=== PATIENT | male | born 1965 | race Caucasian/White ===

== ENCOUNTER 2017-08-28 05:44 | Day surgery (SDC) | payer OTHER ==
[2017-08-28 07:31] VITALS: BMI 37.9
--- NOTE | 2017-08-28 07:41 | HP ---
Admitting History and Physical - Admission History of Present Illness: Patient is a 52 y/o male with a past medical history of CAD, CKD stage IV, bipolar disorder, DM, and sleep apnea (cpap at night). Patient presents for ect , this will be his 12th ect session. Patient was recently discharged from [facility] last week in which he received ect. He denies any suicidal or homicidal ideation, visual or auditory hallucinations. History Source: Patient Limitations to Obtaining History: No Limitations - Past Medical History Cardiovascular: Yes: CAD Pulmonary: Yes: Sleep Apnea Endocrine: Yes: Diabetes Mellitus - Past Surgical History Additional Past Surgical History: stent x 2 - Smoking History Smoking history: Never smoked Have you smoked in the past 12 months: No - Alcohol/Substance Use Hx Alcohol Use: No History of Substance Use: reports: None - Social History Usual Living Arrangement: Yes: Other (with family) ADL: Independent Occupation: disabled History of Recent Travel: No Home Medications - Allergies Allergies/Adverse Reactions: Allergies Allergy/AdvReac Type Severity Reaction Status Date / Time haloperidol [From Haldol] Allergy Severe Rash Verified 08/26/17 15:00 thiothixene [From Navane] Allergy Severe "FREAK OUT" Verified 08/26/17 15:00 ziprasidone [From Geodon] Allergy Severe "FREAK OUT" Verified 08/26/17 15:00 - Home Medications Home Medications: Ambulatory Orders Aripiprazole [Abilify] 5 mg PO DAILY 08/28/17 Aspirin [Adult Aspirin] 81 mg PO DAILY 08/28/17 Clonazepam [Klonopin] 1 mg PO DAILY 08/28/17 Divalproex [Depakote -] 500 mg PO DAILY 08/28/17 Linagliptin [Tradjenta] 5 mg PO DAILY 08/28/17 Pantoprazole Sodium [Protonix] 40 mg PO DAILY 08/28/17 Ticagrelor [Brilinta] 60 mg PO DAILY 08/28/17 Family Disease History - Family Disease History Family History: Denies Review of Systems - Review of Systems Constitutional: reports: No Symptoms Eyes: reports: No Symptoms HENT: reports: No Symptoms Neck: reports: No Symptoms Cardiovascular: reports: No Symptoms Respiratory: reports: No Symptoms Gastrointestinal: reports: No Symptoms Genitourinary: reports: No Symptoms Musculoskeletal: reports: No Symptoms Integumentary: reports: No Symptoms Neurological: reports: No Symptoms Endocrine: reports: No Symptoms Hematology/Lymphatic: reports: No Symptoms Psychiatric: reports: Anxiety Physical Examination Constitutional: Yes: Well Nourished, No Distress, Calm, Obese Eyes: Yes: WNL, Conjunctiva Clear, EOM Intact HENT: Yes: WNL, Atraumatic, Normocephalic Neck: Yes: WNL, Supple, Trachea Midline Cardiovascular: Yes: WNL, Regular Rate and Rhythm, S1, S2 Respiratory: Yes: WNL, Regular, CTA Bilaterally Gastrointestinal: Yes: WNL, Normal Bowel Sounds, Soft ...Rectal Exam: Yes: Deferred Renal/: Yes: WNL Musculoskeletal: Yes: WNL Extremities: Yes: WNL Edema: No Peripheral Pulses WNL: Yes Peripheral Pulses: Left Radial: 4+, Right Radial: 4+, Left Doralis Pedis: 3+, Right Dorsalis Pedis: 3+, Left Femoral: 3+, Right Femoral: 3+ Integumentary: Yes: WNL Neurological: Yes: WNL, Alert, Oriented ...Motor Strength: WNL Psychiatric: Yes: WNL, Alert, Oriented Labs: cbc 07/24/17 normocytic anemia bmp creatine 2.7 hx of ckd stage IV Imaging - Results EKG: Image Reviewed, Other ( nsr) Assessment/Plan patient is a 52 y/o male that presents for ect lab and ekg reviewed patient appears euvolemic on exam no signs of fluid overload noted patient has a known history of ckd, calculated gfr on 07/24/17 labs is 32, k 5.1, BMP ordered patient is medically optimized for procedure pending repeat bmp
[2017-08-28] MEDS ORDERED: KETAMINE HCL 500 MG/10 ML VIAL ONE (08:49)
[2017-08-28 09:47] LABS: ANION GAP 7 (8-16); BLOOD UREA NITROGEN 36 mg/dl (7-18); CALCIUM 9.2 mg/dl (8.4-10.2); CHLORIDE 108 mmol/L (98-107); CO2 24 mmol/L (22-28); CREATININE 2.7 mg/dl (0.6-1.3); GLUCOSE,RANDOM 114 mg/dl (74-106); POTASSIUM 4.1 mmol/L (3.5-5.1); SODIUM 139 mmol/L (136-145)
[2017-08-28 10:13] VITALS: TEMP 97.6
[2017-08-28 11:53] VITALS: BP 132/78; PULSE 82
== END 2017-08-28 11:57 | disposition home or self-care (01) ==
LOC: FECT 05:44
PROVIDERS: ATTEND Psychiatry & Neurology Psychiatry
PROC: GZB4ZZZ Other Electroconvulsive Therapy (ICD-10-PCS; principal; 2017-08-28 07:30)
DX: F31.89 Other bipolar disorder (principal)
CPT/HCPCS: 36415; 80048; 82962; 90870; 94760

== ENCOUNTER 2017-09-08 06:00 | Day surgery (SDC) | payer OTHER | END 2017-09-08 08:00 | disposition home or self-care (01) | LOC: FECT 06:00 | PROVIDERS: ATTEND Psychiatry & Neurology Psychiatry | PROC: GZB4ZZZ Other Electroconvulsive Therapy (ICD-10-PCS; principal; 2017-09-08) | DX: F33.1 Major depressive disorder, recurrent, moderate (principal); Z53.09 Procedure and treatment not carried out because of other contraindication | CPT/HCPCS: 82962 ==

== ENCOUNTER 2017-09-11 05:38 | Day surgery (SDC) | payer OTHER ==
[2017-09-08 06:15] VITALS: TEMP 98.6
[~2017-09-11 05:38] MED LIST: ONDANSETRON 4 MG/2 ML VIAL IVPUSH PRN
[2017-09-11 06:06] VITALS: BMI 39.2
[2017-09-11] MEDS ORDERED: KETAMINE HCL 500 MG/10 ML VIAL ONE (06:59)
[2017-09-11 08:20] VITALS: BP 128/85; PULSE 81
== END 2017-09-11 09:20 | disposition home or self-care (01) ==
LOC: FECT 05:38
PROVIDERS: ATTEND Psychiatry & Neurology Psychiatry
PROC: GZB4ZZZ Other Electroconvulsive Therapy (ICD-10-PCS; principal; 2017-09-11 07:45)
DX: F33.2 Major depressive disorder, recurrent severe without psychotic features (principal)
CPT/HCPCS: 82962; 90870; 94760

== ENCOUNTER 2022-02-19 11:31 | Inpatient (IN) | payer OTHER ==
[2022-02-19] MEDS ORDERED: ASPIRIN 81 MG CHEWABLE TABLETS PO ONE ×2 (11:52→15:55)
[2022-02-19] MEDS ORDERED: ASPIRIN 81 MG CHEWABLE TABLETS ONE ×2 (11:59→16:47)
[2022-02-19 12:28] LABS: HEMATOCRIT 32.8 % (35.4-49); HEMOGLOBIN 11.1 G/dL (11.7-16.9); MCH 30.6 pg (25.7-33.7); MCHC 33.7 g/dl (32.0-35.9); MEAN CELL VOLUME 90.6 fl (80-96); MEAN PLT VOLUME 7.9 fl (7.5-11.1); PLATELET COUNT 314.8 10^3/uL (134-434); RBC 3.62 10^6/uL (4.00-5.60); RDW 16.3 % (11.9-15.9); WHITE BLOOD COUNT 7.4 10^3/uL (4.0-10.8)
[2022-02-19 12:37] LABS: INR 0.97 (0.83-1.09); PROTHROMBIN TIME (PATIENT) 11.2 SEC (9.7-13.0)
[2022-02-19 12:40] LABS: ACTIVATED PTT 24.7 SECONDS (25.2-36.5)
[2022-02-19 13:30] LABS: PLATELET ESTIMATE ADEQUATE
[2022-02-19 13:55] LABS: CALCIUM 9.3 mg/dL (8.5-10.1); MAGNESIUM 2.5 mg/dL (1.8-2.4)
[2022-02-19 13:58] LABS: ALBUMIN 3.4 g/dl (3.4-5.0); BLOOD UREA NITROGEN 57.6 mg/dL (7-18)
[2022-02-19 13:59] LABS: CREATININE 6.3 mg/dL (0.55-1.3)
[2022-02-19 14:02] LABS: BILIRUBIN,TOTAL 0.5 mg/dL (0.2-1); TOT PROT 6.5 g/dl (6.4-8.2)
[2022-02-19] MEDS ORDERED: ACETAMINOPHEN 1000 MG/100 ML BAG IVPB ONE (15:02)
[2022-02-19] MEDS ORDERED: ACETAMINOPHEN INJECTION 100 ML IVPB ONE (15:14)
[2022-02-19] MEDS ORDERED: ATORVASTATIN CA 80 MG TABLET (FP) PO ONE (15:57)
[2022-02-19] MEDS ORDERED: ATORVASTATIN CA 80 MG TABLET (FP) ONE (16:47)
[2022-02-19] MEDS ORDERED: ACETAMINOPHEN 325 MG TABLET (FP) ONE (18:34)
[2022-02-19] MEDS ORDERED: METOCLOPRAMIDE HCL 10 MG TABLET (FP) PO ONE ×2 (18:35)
[2022-02-20] MEDS ORDERED: ACETAMINOPHEN 500 MG TABLET (FP) PO ONE (00:11)
[2022-02-20 02:01] VITALS: BMI 36.7
[2022-02-20] MEDS ORDERED: PATIENT'S OWN MEDICATION (NON-FORMULARY) (Lamotrigine [Lamotrigine] 150 MG Tablet) PO SCH (07:15)
[2022-02-20] MEDS: ASPIRIN COATED 81 MG TABLET.EC PO SCH (09:54)
[2022-02-20] MEDS: amLODIPine BESYLATE 5 MG TABLET (FP) PO SCH (09:54)
[2022-02-20] MEDS: clonazePAM 0.5 MG TABLET PO SCH ×2 (09:54→21:38)
[2022-02-20] MEDS: DIVALPROEX NA *ER* EXTEND REL 500 MG TABLET.SA (FP) PO SCH ×2 (09:54→21:38)
[2022-02-20] MEDS: TICAGRELOR 90 MG TABLET PO SCH ×2 (09:58→21:38)
[2022-02-20] MEDS: OLANZapine 10 MG TABLET PO SCH (09:58)
[2022-02-20] MEDS: LAMOTRIGINE 100 MG, LAMOTRIGINE 50 MG PO SCH (09:58)
[2022-02-20] MEDS ORDERED: lamoTRIgine 100 MG TABLET PO SCH (10:00)
[2022-02-20] MEDS ORDERED: ARIPiprazole 10 MG TABLET PO SCH (10:00)
[2022-02-20] MEDS ORDERED: FUROSEMIDE 40 MG TABLET (FP) PO ONE (12:00)
[2022-02-20] MEDS: SODIUM BICARBONATE 650 MG TABLET PO SCH ×2 (12:01→21:38)
[2022-02-20] MEDS: INSULIN SLIDING SCALE (NOVOLOG) 1 VIAL SQ SCH ×3 (12:03→21:39)
[2022-02-20] MEDS: HEPARIN NA (PORCINE) 5,000 UNITS/ML 1ML VIAL SQ SCH ×2 (14:29→21:39)
[2022-02-20] MEDS ORDERED: ACETAMINOPHEN 1000 MG/100 ML BAG IVPB ONE (18:44)
[2022-02-20] MEDS: ATORVASTATIN CA 80 MG TABLET (FP) PO SCH (21:37)
[2022-02-20] MEDS ORDERED: DIVALPROEX NA *ER* EXTEND REL 500 MG TABLET.SA (FP) PO SCH (22:00)
[2022-02-20] MEDS ORDERED: ATORVASTATIN CA 20 MG TABLET (FP) PO SCH (22:00)
[2022-02-21] MEDS: HEPARIN NA (PORCINE) 5,000 UNITS/ML 1ML VIAL SQ SCH ×4 (05:39→22:08)
[2022-02-21] MEDS ORDERED: ACETAMINOPHEN 1000 MG/100 ML BAG IVPB ONE (05:45)
[2022-02-21] MEDS: INSULIN SLIDING SCALE (NOVOLOG) 1 VIAL SQ SCH ×4 (06:59→22:05)
[2022-02-21] MEDS ORDERED: REGADENOSON 0.4 MG/5 ML PRE-FILLED SYRINGE IVPUSH ONE ×2 (10:29→10:45)
[2022-02-21] MEDS: clonazePAM 0.5 MG TABLET PO SCH ×2 (14:02→21:52)
[2022-02-21] MEDS: ASPIRIN COATED 81 MG TABLET.EC PO SCH (14:02)
[2022-02-21] MEDS: amLODIPine BESYLATE 5 MG TABLET (FP) PO SCH (14:02)
[2022-02-21] MEDS: SODIUM BICARBONATE 650 MG TABLET PO SCH ×2 (14:02→21:52)
[2022-02-21] MEDS: DIVALPROEX NA *ER* EXTEND REL 500 MG TABLET.SA (FP) PO SCH ×2 (14:05→21:53)
[2022-02-21] MEDS: TICAGRELOR 90 MG TABLET PO SCH ×2 (14:05→21:53)
[2022-02-21] MEDS: LAMOTRIGINE 100 MG, LAMOTRIGINE 50 MG PO SCH (14:06)
[2022-02-21] MEDS: OLANZapine 10 MG TABLET PO SCH (14:07)
[2022-02-21] MEDS: ATORVASTATIN CA 80 MG TABLET (FP) PO SCH (21:52)
[2022-02-22] MEDS: INSULIN SLIDING SCALE (NOVOLOG) 1 VIAL SQ SCH ×2 (06:20→11:58)
[2022-02-22] MEDS: clonazePAM 0.5 MG TABLET PO SCH ×2 (06:22→10:01)
[2022-02-22] MEDS: HEPARIN NA (PORCINE) 5,000 UNITS/ML 1ML VIAL SQ SCH ×2 (06:30→13:58)
[2022-02-22 07:51] LABS: BASO % 0.4 % (0-2.0); EOS % 2.6 % (0-4.5); HEMATOCRIT 31.5 % (35.4-49); HEMOGLOBIN 10.1 GM/dL (11.7-16.9); LYMPH % 23.1 % (8-40); MCH 29.8 pg (25.7-33.7); MCHC 32.2 g/dl (32.0-35.9); MEAN CELL VOLUME 92.6 fl (80-96); MEAN PLT VOLUME 7.5 fl (7.5-11.1); MONO % 8.1 % (3.8-10.2); NEUT % 65.8 % (42.8-82.8); PLATELET COUNT 232 10^3/uL (134-434); RDW 17.6 % (11.9-15.9); WHITE BLOOD COUNT 6.3 K/mm3 (4.0-10.0)
[2022-02-22 08:07] LABS: ALBUMIN 3.2 g/dl (3.4-5.0); CALCIUM 9.1 mg/dL (8.5-10.1); MAGNESIUM 2.6 mg/dL (1.8-2.4)
[2022-02-22 08:09] LABS: BLOOD UREA NITROGEN 60.2 mg/dL (7-18)
[2022-02-22 08:11] LABS: PHOSPHOROUS 5.8 mg/dL (2.5-4.9)
[2022-02-22 08:12] LABS: BILIRUBIN,TOTAL 0.6 mg/dL (0.2-1)
[2022-02-22 08:18] LABS: CREATININE 6.4 mg/dL (0.55-1.3)
[2022-02-22 09:58] VITALS: RESP 18
[2022-02-22] MEDS: ASPIRIN COATED 81 MG TABLET.EC PO SCH (09:58)
[2022-02-22] MEDS: amLODIPine BESYLATE 5 MG TABLET (FP) PO SCH (09:59)
[2022-02-22] MEDS: LAMOTRIGINE 100 MG, LAMOTRIGINE 50 MG PO SCH (09:59)
[2022-02-22] MEDS: SODIUM BICARBONATE 650 MG TABLET PO SCH (09:59)
[2022-02-22] MEDS: TICAGRELOR 90 MG TABLET PO SCH (09:59)
[2022-02-22] MEDS: OLANZapine 10 MG TABLET PO SCH (10:00)
[2022-02-22] MEDS: DIVALPROEX NA *ER* EXTEND REL 500 MG TABLET.SA (FP) PO SCH (10:00)
[2022-02-22 15:26] VITALS: BP 122/64; PULSE 92; TEMP 98
[2022-02-22] MEDS ORDERED: LORazepam 2 MG/ML SDV VIAL IVPUSH ONE (15:29)
[2022-02-22] MEDS ORDERED: SEVELAMER CARBONATE 800 MG TAB (FP) PO SCH (17:30)
== END 2022-02-22 17:39 | disposition home or self-care (01) | DRG 640 ==
LOC: FER 11:31 → J4W 02-20
DX: E87.70 Fluid overload, unspecified (principal); N18.6 End stage renal disease; I12.0 Hypertensive chronic kidney disease with stage 5 chronic kidney disease or end stage renal disease; E87.20 Acidosis, unspecified; D63.1 Anemia in chronic kidney disease; F31.9 Bipolar disorder, unspecified; G47.33 Obstructive sleep apnea (adult) (pediatric); Z99.89 Dependence on other enabling machines and devices; R07.89 Other chest pain; F41.8 Other specified anxiety disorders
CPT/HCPCS: 0241U-QW; 36415; 71045-TC-FY; 71046-TC-FY; 76775-TC; 76856-TC; 78452-TC; 80053; 80061; 82962; 83735; 83880; 84100; 84484; 85025; 85027; 85610; 85730; 93005; 93010; 93017; 93306-TC; 94660; 97116-GP; 97161-GP; 99285-25; A9502; C9803-CS; J1644; J2785; U0003; U0005

== ENCOUNTER 2022-05-19 12:31 | Emergency (ER) | payer OTHER ==
[2022-05-19 12:54] VITALS: BP 144/78; PULSE 84; RESP 20; TEMP 98.2; BMI 31.5
== END 2022-05-19 15:50 | disposition home or self-care (01) ==
LOC: FER 12:31
DX: R60.0 Localized edema (principal); S84.92XA Injury of unspecified nerve at lower leg level, left leg, initial encounter; W18.30XA Fall on same level, unspecified, initial encounter
CPT/HCPCS: 93005; 93971-TC; 99284-25

== ENCOUNTER 2022-05-24 01:39 | Emergency (ER) | payer OTHER ==
[2022-05-24 02:05] VITALS: BP 144/80; PULSE 85; RESP 16; TEMP 98.8; BMI 31.5
== END 2022-05-24 02:54 | disposition home or self-care (01) ==
LOC: FER 01:39
DX: M79.622 Pain in left upper arm (principal)
CPT/HCPCS: 99283-25